=== PATIENT | male | born 1955 | race African-American/Black ===

== ENCOUNTER 2023-12-10 20:45 | Inpatient (IN) | payer MEDICARE, OTHER ==
[~2023-12-10] VITALS: Ht 172.7 cm; Wt 113.6 kg
[2023-12-10] MEDS: NALOXONE HCL 0.4MG/ML 1ML VIAL ONE (21:09)
[2023-12-10 21:14] LABS: DIFFERENTIAL COMMENT 1; HEMATOCRIT. 41.7 % (42.0-52.0); HEMOGLOBIN. 13.4 g/dL (14.0-18.0); MEAN CORPUSCULAR HEMOGLOBIN 26.9 pg (28.0-32.0); MEAN CORPUSCULAR HGB CONC 32.2 g/dL (31.0-37.0); MEAN CORPUSCULAR VOLUME 83.3 fL (80.0-94.0); MEAN PLATELET VOLUME 8.4 fl (7.4-10.4); PLATELET 317 x1000/uL (130-400); RED BLOOD CELL COUNT 5.01 mill/uL (4.7-6.1); RED CELL DISTRIBUTION WIDTH 17.6 % (11.6-14.6); WHITE BLOOD COUNT 6.5 x1000/uL (4.5-11.0)
[2023-12-10] MEDS: NALOXONE HCL 1MG/ML 2ML VIAL IV ONE ×2 (21:16)
[2023-12-10 21:20] VITALS: PULSE 109; RESP 16
[2023-12-10 21:24] LABS: PROTHROMBIN TIME 11.2 sec (9.6-11.0)
[2023-12-10 21:27] LABS: ALANINE AMINOTRANSFERASE 17 IU/L (10-49); ALBUMIN 4.7 g/dL (3.2-4.8); ASPARTATE AMINOTRANSFERASE 46 IU/L (<34); BILIRUBIN TOTAL 0.2 mg/dL (0.1-1.0); CALCIUM 9.7 mg/dL (8.7-10.4); CARBON DIOXIDE 21 mEq/L (21-32); CHLORIDE 96 mEq/L (98-107); GLUCOSE 128 mg/dL (70-105); POTASSIUM 5.4 mEq/L (3.5-5.1); PROTEIN TOTAL 8.3 g/dL (6.0-8.3); SODIUM 133 mEq/L (136-145); TROPONIN I HIGH SENSITIVITY 31 ng/L (3.0-53); UREA NITROGEN BLOOD 14 mg/dL (9-23)
[2023-12-10 21:29] LABS: ETHANOL BLOOD < 10 mg/dL (<10)
[2023-12-10 21:42] LABS: ANISOCYTOSIS 1+; PLATELET ESTIMATE NORMAL
[2023-12-10] MEDS: PROPOFOL 10MG/ML 100ML 100 ML IV STA (22:06)
[2023-12-10] MEDS: LEVETIRACETAM 500MG PREMIX 100 ML IV ONE (22:06)
[2023-12-10 22:22] LABS: CLARITY URINE CLEAR (CLEAR); COLOR URINE YELLOW (YELLOW); GLUCOSE URINE NEGATIVE (NEGATIVE); KETONES URINE NEGATIVE (NEGATIVE); LEUKOCYTE ESTERASE URINE NEGATIVE (NEGATIVE); NITRITE URINE NEGATIVE (NEGATIVE); OCCULT BLOOD URINE NEGATIVE (NEGATIVE); PROTEIN URINE 2+ (NEGATIVE); SPECIFIC GRAVITY URINE 1.035 (1.005-1.030); UROBILINOGEN URINE 0.2 E.U./dL (0.2-1.0)
[2023-12-10 22:34] LABS: *AMPHETAMINES SCREEN URINE NEGATIVE (NEGATIVE); *BARBITURATES SCREEN URINE NEGATIVE (NEGATIVE); *BENZODIAZEPINES SCREEN URINE PRESUMPTIVE POSITIVE (NEGATIVE); *COCAINE SCREEN URINE NEGATIVE (NEGATIVE); CANNABINOID URINE SCREEN NEGATIVE (NEGATIVE); ECSTASY MDMA SCREEN URINE NEGATIVE (NEGATIVE); METHADONE URINE SCREEN Neg (NEGATIVE); OPIATES URINE SCREEN NEGATIVE (NEGATIVE); PHENCYCLIDINE URINE SCREEN NEGATIVE (NEGATIVE)
[2023-12-10 22:42] LABS: BACTERIA URINE 1+; RBC URINE NONE SEEN /hpf (0-2); SQUAMOUS EPITHELIAL CELL URINE FEW /lpf (RARE/1+); WBC URINE 0-2 /hpf (0-2)
[2023-12-10] MEDS: SODIUM CHLORIDE 0.9% 1000ML BAG (SEPSIS BOLUS) IV ONE (22:56)
[2023-12-10] MEDS: PIPERACILLIN/TAZO 3.375G/50ML 50 ML IV ONE (22:56)
[2023-12-10 23:09] LABS: BG BASE EXCESS -1.3 mmol/L (-2.0-2.0); BG CARBOXYHEMOGLOBIN 0.5 % (0.5-1.5); BG DEOXYHEMOGLOBIN 11.4 % (0.0-5.0); BG FRACTION INSPIRED OXYGEN 60; BG HCO3 ACT 24.9 mmol/L (22.0-26.0); BG METHEMOGLOBIN 0.3 % (0.0-1.5); BG OXYGEN SATURATION 88.5 % (92.0-98.5); BG OXYHEMOGLOBIN 87.8 % (94.0-97.0); BG PCO2 47.4 mmHg (35.0-45.0); BG PH 7.338 (7.350-7.450); BG PO2 61.3 mmHg (75.0-100.0); BG SAMPLE SITE LEFT RADIAL; BG VENT MODE VENT - AC
[2023-12-10] MEDS ORDERED: LEVETIRACETAM 500MG PREMIX 100 ML IV ONE (23:30)
[2023-12-10] MEDS: VANCOMYCIN 1G PREMIX 200 ML IV ONE (23:43)
[2023-12-10 23:52] LABS: T4 FREE 1.24 ng/dL (0.89-1.76); THYROID STIMULATING HORMONE 4.66 uIU/mL (0.55-4.78)
[2023-12-11] VITALS (34 sets, daily range): BP systolic 114–198; BP diastolic 66–103; PULSE 53–79; RESP 12–20; TEMP 98–98.8
[2023-12-11 00:25] LABS: LACTIC ACID 4.1 mmol/L (0.4-2.0)
[2023-12-11] MEDS: AMLODIPINE 5MG TABLET PO SCH (00:45)
[2023-12-11] MEDS: ASPIRIN 81MG TABLET PO SCH (01:00)
[2023-12-11] MEDS ORDERED: DEXTROSE 50% WATER 50ML SYRINGE IV PRN (01:00)
[2023-12-11] MEDS: PROPOFOL 10MG/ML 100ML 100 ML IV NR (01:30)
[2023-12-11] MEDS: PANTOPRAZOLE SODIUM 40 MG/VIAL IV SCH (01:40)
[2023-12-11] MEDS: VANCOMYCIN 750MG PREMIX 150 ML IV NR (02:30)
[2023-12-11] MEDS: LEVETIRACETAM 500MG PREMIX 100 ML IV NR (03:27)
[2023-12-11] MEDS: SODIUM POLYSTYRENE SULFONATE 15 G/60 ML BOT PO NR (04:00)
[2023-12-11 04:03] LABS: EOSINOPHILS % 0.9 % (0.0-5.0); HEMATOCRIT. 38.8 % (42.0-52.0); HEMOGLOBIN. 12.7 g/dL (14.0-18.0); MEAN CORPUSCULAR HEMOGLOBIN 26.4 pg (28.0-32.0); MEAN CORPUSCULAR HGB CONC 32.7 g/dL (31.0-37.0); MEAN CORPUSCULAR VOLUME 80.7 fL (80.0-94.0); MONOCYTES % 13.3 % (2.0-8.0); NEUTROPHILS % 67.8 % (40.0-76.0); PLATELET 274 x1000/uL (130-400); RED BLOOD CELL COUNT 4.81 mill/uL (4.7-6.1); RED CELL DISTRIBUTION WIDTH 17.2 % (11.6-14.6); WHITE BLOOD COUNT 6.8 x1000/uL (4.5-11.0)
[2023-12-11 04:18] LABS: AMMONIA < 10 uMol/L (<32)
[2023-12-11 04:26] LABS: CREATINE KINASE 226 IU/L (46-171); TROPONIN I HIGH SENSITIVITY 39 ng/L (3.0-53)
[2023-12-11 04:30] LABS: ALANINE AMINOTRANSFERASE 10 IU/L (10-49); ALBUMIN 3.9 g/dL (3.2-4.8); ASPARTATE AMINOTRANSFERASE 19 IU/L (<34); BILIRUBIN TOTAL 0.2 mg/dL (0.1-1.0); CALCIUM 8.8 mg/dL (8.7-10.4); CARBON DIOXIDE 31 mEq/L (21-32); CHLORIDE 100 mEq/L (98-107); CHOLESTEROL 87 mg/dL (<200); CREATININE 0.9 mg/dL (0.6-1.3); GLUCOSE 105 mg/dL (70-105); HDL CHOLESTEROL 33 mg/dL (>55); LDL CHOLESTEROL 22 mg/dL (5-100); PROTEIN TOTAL 6.4 g/dL (6.0-8.3); SODIUM 137 mEq/L (136-145); T4 FREE 1.29 ng/dL (0.89-1.76); THYROID STIMULATING HORMONE 0.98 uIU/mL (0.55-4.78); TRIGLYCERIDE 266 mg/dL (0-150); UREA NITROGEN BLOOD 13 mg/dL (9-23)
[2023-12-11 04:44] LABS: POTASSIUM 2.9 mEq/L (3.5-5.1)
[2023-12-11] MEDS: PROPOFOL 10MG/ML 100ML 100 ML IV PRN (05:23)
[2023-12-11] MEDS: INSULIN LISPRO 100 UNITS/ML SUBCUT SCH (08:20)
[2023-12-11 08:56] LABS: BG BASE EXCESS 1.8 mmol/L (-2.0-2.0); BG CARBOXYHEMOGLOBIN 0.3 % (0.5-1.5); BG DEOXYHEMOGLOBIN 1.9 % (0.0-5.0); BG FRACTION INSPIRED OXYGEN 100; BG HCO3 ACT 28.4 mmol/L (22.0-26.0); BG METHEMOGLOBIN 0.5 % (0.0-1.5); BG OXYGEN SATURATION 98.1 % (92.0-98.5); BG OXYHEMOGLOBIN 97.3 % (94.0-97.0); BG PCO2 51.2 mmHg (35.0-45.0); BG PH 7.362 (7.350-7.450); BG PO2 131.7 mmHg (75.0-100.0); BG SAMPLE SITE RIGHT RADIAL; BG TOTAL HEMOGLOBIN 17.2 g/dL (12.0-18.0); BG TOTAL RESPIRATORY RATE 18 b/min; BG VENT MODE VENT - AC
[2023-12-11] MEDS: BLOOD SUGAR DIAGNOSTIC STRIP TEST SCH (09:13)
[2023-12-11] MEDS: LEVETIRACETAM 500MG PREMIX 100 ML IV SCH ×2 (09:16→21:00)
[2023-12-11] MEDS: ENOXAPARIN 30MG/0.3ML SYR SUBCUT SCH (09:16)
[2023-12-11] MEDS: PIPERACILLIN/TAZO 3.375G/50ML 50 ML IV SCH ×2 (10:03→13:14)
[2023-12-11] MEDS: TAMSULOSIN HCL 0.4MG SR CAPSULE PO SCH (10:14)
[2023-12-11] MEDS: LOSARTAN 50 MG TABLET PO SCH (10:14)
[2023-12-11] MEDS ORDERED: VANCOMYCIN 750MG PREMIX 150 ML IV SCH (12:00)
[2023-12-11] MEDS: ARIPIPRAZOLE 5MG TABLET PO SCH ×2 (12:30→21:00)
[2023-12-11] MEDS: VANCOMYCIN 750MG PREMIX 150 ML IV SCH (12:30)
[2023-12-11] MEDS: HYDRALAZINE HCL 100MG TABLET PO SCH (14:00)
[2023-12-11] MEDS: BUDESONIDE 0.5MG/2ML NEB HHN SCH (16:19)
[2023-12-11] MEDS: IPRATROPIUM/ALBUTEROL 0.5-3(2.5)MG/3ML NEB HHN SCH (16:19)
[2023-12-11] MEDS: MONTELUKAST SODIUM 10MG TABLET PO SCH (17:40)
[2023-12-11] MEDS: DEXT 5%/0.9% NACL 1,000 ML IV SCH (18:16)
[2023-12-11] MEDS: CLONIDINE 0.1MG TABLET PO PRN (18:32)
[2023-12-11 18:41] LABS: CREATINE KINASE 252 IU/L (46-171); TROPONIN I HIGH SENSITIVITY 29 ng/L (3.0-53)
[2023-12-11] MEDS: TRAZODONE HCL 50MG TABLET PO SCH (21:00)
[2023-12-11] MEDS: ATORVASTATIN CALCIUM 40MG TABLET PO SCH (21:00)
[2023-12-11] MEDS: KCL 20MEQ/100ML PREMIX 100 ML IV ONE (22:34)
[2023-12-11] MEDS: CARVEDILOL 3.125 MG TABLET PO SCH (23:00)
[2023-12-12] VITALS (58 sets, daily range): BP systolic 109–184; BP diastolic 50–97; PULSE 51–81; RESP 6–22; TEMP 97.8–98.5
[2023-12-12 05:38] LABS: HEMATOCRIT 38.3 % (42.0-52.0); HEMOGLOBIN 12.6 g/dL (14.0-18.0); MEAN CORPUSCULAR HEMOGLOBIN 26.9 pg (28.0-32.0); MEAN CORPUSCULAR VOLUME 81.4 fL (80.0-94.0); PLATELET 278 x1000/uL (130-400); RED CELL DISTRIBUTION WIDTH 17.2 % (11.6-14.6); WHITE BLOOD COUNT 7.8 x1000/uL (4.5-11.0)
[2023-12-12 05:57] LABS: CALCIUM 8.5 mg/dL (8.7-10.4); CARBON DIOXIDE 27 mEq/L (21-32); CHLORIDE 99 mEq/L (98-107); CREATININE 0.8 mg/dL (0.6-1.3); GLUCOSE 103 mg/dL (70-105); PHOSPHORUS 3.1 mg/dL (2.5-4.9); POTASSIUM 3.2 mEq/L (3.5-5.1); SODIUM 134 mEq/L (136-145); TRIGLYCERIDE 222 mg/dL (0-150); UREA NITROGEN BLOOD 6 mg/dL (9-23)
[2023-12-12] MEDS: ASPIRIN 81MG TABLET PO NR (06:27)
[2023-12-12 08:07] LABS: CARBON DIOXIDE 30 mEq/L (21-32); CHLORIDE 101 mEq/L (98-107); CREATININE 0.6 mg/dL (0.6-1.3); GLUCOSE 115 mg/dL (70-105); HEMATOCRIT 35.8 % (42.0-52.0); HEMOGLOBIN 11.6 g/dL (14.0-18.0); MEAN CORPUSCULAR HEMOGLOBIN 25.8 pg (28.0-32.0); MEAN CORPUSCULAR HGB CONC 32.5 g/dL (31.0-37.0); MEAN CORPUSCULAR VOLUME 79.4 fL (80.0-94.0); PLATELET 264 x1000/uL (130-400); RED BLOOD CELL COUNT 4.51 mill/uL (4.7-6.1); SODIUM 135 mEq/L (136-145); UREA NITROGEN BLOOD 7 mg/dL (9-23)
[2023-12-12 08:26] LABS: POTASSIUM 2.7 mEq/L (3.5-5.1)
[2023-12-12] MEDS: MAGNESIUM 2 G PREMIX 50 ML IV NR (08:50)
[2023-12-12] MEDS: AMLODIPINE 10MG TABLET PO SCH (08:51)
[2023-12-12] MEDS: LOSARTAN 25 MG TABLET PO SCH (08:51)
[2023-12-12] MEDS ORDERED: ASPIRIN 81MG TABLET PO SCH (09:00)
[2023-12-12 09:01] LABS: BG BASE EXCESS 3.6 mmol/L (-2.0-2.0); BG CARBOXYHEMOGLOBIN 0.4 % (0.5-1.5); BG DEOXYHEMOGLOBIN 8.3 % (0.0-5.0); BG FRACTION INSPIRED OXYGEN 80; BG METHEMOGLOBIN 0.2 % (0.0-1.5); BG OXYGEN SATURATION 91.6 % (92.0-98.5); BG OXYHEMOGLOBIN 91.1 % (94.0-97.0); BG PCO2 46.9 mmHg (35.0-45.0); BG PH 7.409 (7.350-7.450); BG PO2 65.5 mmHg (75.0-100.0); BG SAMPLE SITE RIGHT RADIAL; BG TOTAL HEMOGLOBIN 14.2 g/dL (12.0-18.0); BG VENT MODE VENT - AC
[2023-12-12] MEDS: POTASSIUM CHLORIDE 40 MEQ in DEXT 5% WATER 500 ML IV NR ×2 (09:12→13:54)
[2023-12-12] MEDS ORDERED: DEXT 5%/0.45% NACL KCL 40MEQ/L 1,000 ML IV ONE (10:30)
[2023-12-12] MEDS: PROPOFOL 10MG/ML 100ML 100 ML IV PRN (10:43)
[2023-12-12] MEDS: VANCOMYCIN 1G PREMIX 200 ML IV SCH (10:46)
[2023-12-12] MEDS: IOHEXOL-300 100 ML BOTTLE ONE (12:06)
[2023-12-12 14:48] LABS: CREATINE KINASE 186 IU/L (46-171)
[2023-12-12] MEDS ORDERED: POTASSIUM CHLORIDE 40 MEQ in DEXT 5% WATER 250 ML IV ONE (15:00)
[2023-12-12 17:32] LABS: IRON 14 ug/dL (65-175); TOTAL IRON BINDING CAPACITY 470 ug/dl (250-425)
[2023-12-12] MEDS: HYDRALAZINE 20MG/ML VIAL IV PRN (19:13)
[2023-12-12] MEDS: KCL 20MEQ/100ML X 2 FOR TOTAL KCL 40MEQ/200ML IV SCH (20:28)
[2023-12-12 23:54] LABS: CREATINE KINASE 171 IU/L (46-171)
[2023-12-13] VITALS (82 sets, daily range): BP systolic 92–173; BP diastolic 40–108; PULSE 62–95; RESP 0–29; TEMP 98.3–99.1
[2023-12-13] MEDS: BLOOD SUGAR DIAGNOSTIC STRIP TEST SCH
[2023-12-13] MEDS: INSULIN LISPRO 100 UNITS/ML SUBCUT SCH
[2023-12-13 00:45] LABS: POTASSIUM 3.6 mEq/L (3.5-5.1)
[2023-12-13 05:37] LABS: HEMATOCRIT 34.5 % (42.0-52.0); HEMOGLOBIN 11.4 g/dL (14.0-18.0); MEAN CORPUSCULAR HEMOGLOBIN 26.7 pg (28.0-32.0); MEAN CORPUSCULAR HGB CONC 33.2 g/dL (31.0-37.0); MEAN CORPUSCULAR VOLUME 80.4 fL (80.0-94.0); PLATELET 283 x1000/uL (130-400); RED BLOOD CELL COUNT 4.29 mill/uL (4.7-6.1); RED CELL DISTRIBUTION WIDTH 16.8 % (11.6-14.6); WHITE BLOOD COUNT 5.2 x1000/uL (4.5-11.0)
[2023-12-13 05:52] LABS: CALCIUM 8.3 mg/dL (8.7-10.4); CARBON DIOXIDE 27 mEq/L (21-32); CHLORIDE 102 mEq/L (98-107); CREATINE KINASE 148 IU/L (46-171); CREATININE 0.7 mg/dL (0.6-1.3); GLUCOSE 105 mg/dL (70-105); PHOSPHORUS 2.9 mg/dL (2.5-4.9); POTASSIUM 3.2 mEq/L (3.5-5.1); SODIUM 135 mEq/L (136-145); TRIGLYCERIDE 290 mg/dL (0-150); UREA NITROGEN BLOOD 6 mg/dL (9-23)
[2023-12-13] MEDS: PROPOFOL 10MG/ML 100ML 100 ML IV PRN (06:59)
[2023-12-13] MEDS: KCL 20MEQ/100ML PREMIX 100 ML IV SCH (07:40)
[2023-12-13] MEDS: LOSARTAN 50 MG TABLET PO SCH (08:18)
[2023-12-13] MEDS: LIDOCAINE HCL 1% 10 MG/ML 10ML VIAL ONE (13:09)
[2023-12-13] MEDS: AMLODIPINE 5MG TABLET PO SCH (16:13)
[2023-12-13 17:26] LABS: POTASSIUM URINE RANDOM 17.2 mEq/L
[2023-12-13 18:00] LABS: BG BASE EXCESS 2.3 mmol/L (-2.0-2.0); BG CARBOXYHEMOGLOBIN 0.1 % (0.5-1.5); BG DEOXYHEMOGLOBIN 6.1 % (0.0-5.0); BG FRACTION INSPIRED OXYGEN 80; BG HCO3 ACT 26.6 mmol/L (22.0-26.0); BG METHEMOGLOBIN 0.2 % (0.0-1.5); BG OXYGEN SATURATION 93.9 % (92.0-98.5); BG OXYHEMOGLOBIN 93.6 % (94.0-97.0); BG PCO2 40.5 mmHg (35.0-45.0); BG PH 7.436 (7.350-7.450); BG PO2 71.3 mmHg (75.0-100.0); BG SAMPLE SITE LEFT RADIAL; BG TOTAL HEMOGLOBIN 12.9 g/dL (12.0-18.0); BG VENT MODE VENT - AC
[2023-12-13] MEDS: METHYLPREDNISOLONE SOD SUCC 40MG/ML (ACT-O-VIAL) IV NR (18:38)
[2023-12-13] MEDS: ACETAMINOPHEN 325MG TABLET PO PRN (20:26)
[2023-12-13] MEDS: DOCUSATE SODIUM 100MG CAPSULE PO PRN (20:28)
[2023-12-13] MEDS: GUAIFENESIN 200MG/10ML SUGAR FREE UDC PO PRN (20:28)
[2023-12-13 22:46] LABS: HEMATOCRIT 38.4 % (42.0-52.0); HEMOGLOBIN 12.6 g/dL (14.0-18.0); MEAN CORPUSCULAR HEMOGLOBIN 26.3 pg (28.0-32.0); MEAN CORPUSCULAR HGB CONC 32.7 g/dL (31.0-37.0); MEAN CORPUSCULAR VOLUME 80.3 fL (80.0-94.0); PLATELET 271 x1000/uL (130-400); RED BLOOD CELL COUNT 4.78 mill/uL (4.7-6.1); RED CELL DISTRIBUTION WIDTH 17.1 % (11.6-14.6); WHITE BLOOD COUNT 5.9 x1000/uL (4.5-11.0)
[2023-12-13 22:54] LABS: POTASSIUM 3.7 mEq/L (3.5-5.1)
[2023-12-14] VITALS (61 sets, daily range): BP systolic 136–184; BP diastolic 69–99; PULSE 64–114; RESP 0–28; TEMP 98–99.5
[2023-12-14 05:58] LABS: CALCIUM 8.9 mg/dL (8.7-10.4); CARBON DIOXIDE 27 mEq/L (21-32); CHLORIDE 104 mEq/L (98-107); CREATININE 0.8 mg/dL (0.6-1.3); GLUCOSE 161 mg/dL (70-105); SODIUM 136 mEq/L (136-145); TRIGLYCERIDE 177 mg/dL (0-150); UREA NITROGEN BLOOD 6 mg/dL (9-23)
[2023-12-14] MEDS ORDERED: PROPOFOL 10MG/ML 100ML 100 ML IV PRN (08:15)
[2023-12-14] MEDS: LOSARTAN 100 MG TABLET PO SCH (08:29)
[2023-12-14 09:02] LABS: CLARITY URINE CLOUDY (CLEAR); COLOR URINE ORANGE (YELLOW); GLUCOSE URINE NEGATIVE (NEGATIVE); KETONES URINE NEGATIVE (NEGATIVE); LEUKOCYTE ESTERASE URINE 1+ (NEGATIVE); NITRITE URINE NEGATIVE (NEGATIVE); OCCULT BLOOD URINE 3+ (NEGATIVE); PROTEIN URINE 1+ (NEGATIVE); SPECIFIC GRAVITY URINE 1.018 (1.005-1.030); UROBILINOGEN URINE 0.2 E.U./dL (0.2-1.0)
[2023-12-14 09:29] LABS: BACTERIA URINE FEW; RBC URINE TNTC /hpf (0-2); SQUAMOUS EPITHELIAL CELL URINE NONE SEEN /lpf (RARE/1+); YEAST URINE NONE SEEN
[2023-12-14 10:21] LABS: BG BASE EXCESS 1.7 mmol/L (-2.0-2.0); BG CARBOXYHEMOGLOBIN 0.1 % (0.5-1.5); BG DEOXYHEMOGLOBIN 7.6 % (0.0-5.0); BG FRACTION INSPIRED OXYGEN 50; BG HCO3 ACT 26.6 mmol/L (22.0-26.0); BG METHEMOGLOBIN 0.2 % (0.0-1.5); BG OXYGEN SATURATION 92.4 % (92.0-98.5); BG OXYHEMOGLOBIN 92.1 % (94.0-97.0); BG PH 7.409 (7.350-7.450); BG PO2 68.5 mmHg (75.0-100.0); BG SAMPLE SITE RIGHT RADIAL; BG TOTAL HEMOGLOBIN 12.5 g/dL (12.0-18.0); BG VENT MODE VENT - AC
[2023-12-14 12:44] LABS: HEMATOCRIT 34.4 % (42.0-52.0); HEMOGLOBIN 11.4 g/dL (14.0-18.0); MEAN CORPUSCULAR HEMOGLOBIN 26.2 pg (28.0-32.0); MEAN CORPUSCULAR HGB CONC 33.1 g/dL (31.0-37.0); MEAN CORPUSCULAR VOLUME 79.3 fL (80.0-94.0); PLATELET 270 x1000/uL (130-400); RED BLOOD CELL COUNT 4.34 mill/uL (4.7-6.1); WHITE BLOOD COUNT 5.7 x1000/uL (4.5-11.0)
[2023-12-14 13:06] LABS: POTASSIUM 3.9 mEq/L (3.5-5.1)
[2023-12-14 20:32] LABS: POTASSIUM 3.8 mEq/L (3.5-5.1)
[2023-12-14] MEDS: MAGNESIUM/ALUMINUM HYDROXIDE/SIMETHICONE 30ML UDC PO PRN (22:26)
[2023-12-14] MEDS: SENNOSIDES/DOCUSATE SOD 8.6/50MG TABLET PO PRN (22:27)
[2023-12-14 23:26] LABS: POTASSIUM 4.2 mEq/L (3.5-5.1)
[2023-12-15] VITALS (76 sets, daily range): BP systolic 124–232; BP diastolic 67–156; PULSE 66–125; RESP 0–32; TEMP 98–99; O2SAT 98
[2023-12-15 05:26] LABS: HEMATOCRIT 33.8 % (42.0-52.0); HEMOGLOBIN 11.1 g/dL (14.0-18.0); MEAN CORPUSCULAR HGB CONC 32.8 g/dL (31.0-37.0); MEAN CORPUSCULAR VOLUME 79.1 fL (80.0-94.0); PLATELET 283 x1000/uL (130-400); RED BLOOD CELL COUNT 4.28 mill/uL (4.7-6.1); RED CELL DISTRIBUTION WIDTH 17.2 % (11.6-14.6); WHITE BLOOD COUNT 5.6 x1000/uL (4.5-11.0)
[2023-12-15 06:34] LABS: CALCIUM 8.7 mg/dL (8.7-10.4); CARBON DIOXIDE 27 mEq/L (21-32); CHLORIDE 105 mEq/L (98-107); CREATININE 0.7 mg/dL (0.6-1.3); GLUCOSE 94 mg/dL (70-105); PHOSPHORUS 3.5 mg/dL (2.5-4.9); POTASSIUM 3.7 mEq/L (3.5-5.1); SODIUM 140 mEq/L (136-145); TRIGLYCERIDE 209 mg/dL (0-150); UREA NITROGEN BLOOD 8 mg/dL (9-23)
[2023-12-15 07:37] LABS: BG CARBOXYHEMOGLOBIN 0.2 % (0.5-1.5); BG DEOXYHEMOGLOBIN 5.7 % (0.0-5.0); BG HCO3 ACT 27.8 mmol/L (22.0-26.0); BG METHEMOGLOBIN 0.3 % (0.0-1.5); BG OXYGEN SATURATION 94.3 % (92.0-98.5); BG OXYHEMOGLOBIN 93.8 % (94.0-97.0); BG PCO2 43.7 mmHg (35.0-45.0); BG PH 7.422 (7.350-7.450); BG PO2 74.3 mmHg (75.0-100.0); BG SAMPLE SITE RIGHT RADIAL; BG TOTAL HEMOGLOBIN 11.8 g/dL (12.0-18.0); BG VENT MODE VENT - AC
[2023-12-15] MEDS: PROPOFOL 10MG/ML 100ML 100 ML IV PRN (08:33)
[2023-12-15] MEDS: METHYLPREDNISOLONE SOD SUCC 40MG/ML (ACT-O-VIAL) IV SCH (13:03)
[2023-12-15] MEDS: ACETYLCYSTEINE 200MG/ML 20% VIAL 4ML INH SCH (13:07)
[2023-12-15 13:48] LABS: BG BASE EXCESS 1.8 mmol/L (-2.0-2.0); BG CARBOXYHEMOGLOBIN 0.3 % (0.5-1.5); BG FRACTION INSPIRED OXYGEN 100; BG HCO3 ACT 27.7 mmol/L (22.0-26.0); BG METHEMOGLOBIN 0.4 % (0.0-1.5); BG OXYHEMOGLOBIN 98.3 % (94.0-97.0); BG PCO2 48.3 mmHg (35.0-45.0); BG PH 7.376 (7.350-7.450); BG PO2 176.5 mmHg (75.0-100.0); BG SAMPLE SITE RIGHT RADIAL; BG TOTAL HEMOGLOBIN 13.4 g/dL (12.0-18.0); BG VENT MODE MASK - NRB
[2023-12-15] MEDS: BUDESONIDE 0.5MG/2ML NEB HHN SCH (16:01)
[2023-12-15] MEDS ORDERED: NICARDIPINE 50 MG in SODIUM CHLORIDE 0.9% 230 ML IV PRN (17:30)
[2023-12-15] MEDS: LABETALOL 5MG/ML SYR 20 MG/4 ML SYRINGE IV NR (18:33)
[2023-12-15] MEDS: METOPROLOL TARTRATE 50MG TABLET PO SCH (21:44)
[2023-12-16] VITALS (48 sets, daily range): BP systolic 134–171; BP diastolic 66–96; PULSE 66–98; RESP 11–22; TEMP 97.7–98.5; O2SAT 90–94
[2023-12-16 05:40] LABS: HEMATOCRIT 33.9 % (42.0-52.0); HEMOGLOBIN 11.1 g/dL (14.0-18.0); MEAN CORPUSCULAR HGB CONC 32.8 g/dL (31.0-37.0); MEAN CORPUSCULAR VOLUME 79.2 fL (80.0-94.0); PLATELET 272 x1000/uL (130-400); RED BLOOD CELL COUNT 4.28 mill/uL (4.7-6.1); WHITE BLOOD COUNT 7.4 x1000/uL (4.5-11.0)
[2023-12-16 05:57] LABS: CALCIUM 8.8 mg/dL (8.7-10.4); CARBON DIOXIDE 30 mEq/L (21-32); CHLORIDE 103 mEq/L (98-107); CREATININE 0.7 mg/dL (0.6-1.3); GLUCOSE 109 mg/dL (70-105); POTASSIUM 4.3 mEq/L (3.5-5.1); SODIUM 138 mEq/L (136-145); TRIGLYCERIDE 114 mg/dL (0-150); UREA NITROGEN BLOOD 10 mg/dL (9-23)
[2023-12-16 08:02] LABS: BG BASE EXCESS 4.3 mmol/L (-2.0-2.0); BG DEOXYHEMOGLOBIN 5.1 % (0.0-5.0); BG HCO3 ACT 31.3 mmol/L (22.0-26.0); BG METHEMOGLOBIN 0.3 % (0.0-1.5); BG OXYGEN SATURATION 94.9 % (92.0-98.5); BG OXYHEMOGLOBIN 94.6 % (94.0-97.0); BG PCO2 59.3 mmHg (35.0-45.0); BG PH 7.341 (7.350-7.450); BG PO2 82.4 mmHg (75.0-100.0); BG SAMPLE SITE RIGHT RADIAL; BG TOTAL HEMOGLOBIN 11.6 g/dL (12.0-18.0); BG VENT MODE MASK - NRB
[2023-12-16] MEDS: ONDANSETRON HCL 4MG/2ML INJ IV PRN (09:29)
[2023-12-16] MEDS: GLYCOPYRROLATE 0.2 MG/ML 2ML VIAL IV SCH (11:00)
[2023-12-16] MEDS: METOPROLOL TARTRATE 50MG TABLET PO SCH (15:47)
[2023-12-16] MEDS: IPRATROPIUM/ALBUTEROL 0.5-3(2.5)MG/3ML NEB HHN PRN (20:46)
[2023-12-17] VITALS (21 sets, daily range): BP systolic 134–174; BP diastolic 67–118; PULSE 63–79; RESP 15–32; TEMP 97.7–98.3; O2SAT 99
[2023-12-17 05:16] LABS: HEMATOCRIT 34.3 % (42.0-52.0); HEMOGLOBIN 11.4 g/dL (14.0-18.0); MEAN CORPUSCULAR HEMOGLOBIN 26.6 pg (28.0-32.0); MEAN CORPUSCULAR HGB CONC 33.2 g/dL (31.0-37.0); PLATELET 321 x1000/uL (130-400); RED BLOOD CELL COUNT 4.28 mill/uL (4.7-6.1); RED CELL DISTRIBUTION WIDTH 16.9 % (11.6-14.6); WHITE BLOOD COUNT 7.7 x1000/uL (4.5-11.0)
[2023-12-17 05:35] LABS: CARBON DIOXIDE 29 mEq/L (21-32); CHLORIDE 101 mEq/L (98-107); CREATININE 0.7 mg/dL (0.6-1.3); GLUCOSE 123 mg/dL (70-105); POTASSIUM 4.1 mEq/L (3.5-5.1); SODIUM 135 mEq/L (136-145); UREA NITROGEN BLOOD 17 mg/dL (9-23)
[2023-12-17] MEDS: IOHEXOL-350 100 ML BOTTLE ONE (07:55)
[2023-12-17 08:28] LABS: BG BASE EXCESS 3.9 mmol/L (-2.0-2.0); BG CARBOXYHEMOGLOBIN 0.3 % (0.5-1.5); BG DEOXYHEMOGLOBIN 4.3 % (0.0-5.0); BG FRACTION INSPIRED OXYGEN 80; BG HCO3 ACT 29.4 mmol/L (22.0-26.0); BG METHEMOGLOBIN 0.2 % (0.0-1.5); BG OXYGEN SATURATION 95.7 % (92.0-98.5); BG OXYHEMOGLOBIN 95.2 % (94.0-97.0); BG PCO2 47.6 mmHg (35.0-45.0); BG PH 7.408 (7.350-7.450); BG SAMPLE SITE LEFT RADIAL; BG VENT MODE HIGH FLOW
[2023-12-17] MEDS: NIFEDIPINE XL 90MG TAB PO SCH (10:04)
[2023-12-18] VITALS (16 sets, daily range): BP systolic 128–182; BP diastolic 64–154; PULSE 63–95; RESP 15–24; TEMP 97.5–97.8; O2SAT 93–96
[2023-12-18 06:40] LABS: HEMATOCRIT 36.5 % (42.0-52.0); HEMOGLOBIN 12.1 g/dL (14.0-18.0); MEAN CORPUSCULAR HEMOGLOBIN 26.4 pg (28.0-32.0); MEAN CORPUSCULAR HGB CONC 33.2 g/dL (31.0-37.0); MEAN CORPUSCULAR VOLUME 79.5 fL (80.0-94.0); PLATELET 353 x1000/uL (130-400); RED BLOOD CELL COUNT 4.59 mill/uL (4.7-6.1); WHITE BLOOD COUNT 7.6 x1000/uL (4.5-11.0)
[2023-12-18 07:10] LABS: CARBON DIOXIDE 29 mEq/L (21-32); CHLORIDE 99 mEq/L (98-107); CREATININE 0.7 mg/dL (0.6-1.3); GLUCOSE 126 mg/dL (70-105); POTASSIUM 3.9 mEq/L (3.5-5.1); SODIUM 134 mEq/L (136-145); UREA NITROGEN BLOOD 19 mg/dL (9-23)
[2023-12-18 09:07] LABS: BG BASE EXCESS 3.3 mmol/L (-2.0-2.0); BG CARBOXYHEMOGLOBIN 0.3 % (0.5-1.5); BG DEOXYHEMOGLOBIN 3.9 % (0.0-5.0); BG FRACTION INSPIRED OXYGEN 70; BG HCO3 ACT 28.4 mmol/L (22.0-26.0); BG METHEMOGLOBIN 0.1 % (0.0-1.5); BG OXYGEN SATURATION 96.1 % (92.0-98.5); BG OXYHEMOGLOBIN 95.7 % (94.0-97.0); BG PCO2 44.8 mmHg (35.0-45.0); BG SAMPLE SITE LEFT RADIAL; BG VENT MODE HIGH FLOW
[2023-12-18] MEDS: NICOTINE 7MG PATCH TD SCH (18:09)
[2023-12-18] MEDS: METHYLPREDNISOLONE SOD SUCC 40MG/ML (ACT-O-VIAL) IV SCH (18:09)
[2023-12-18] MEDS: ENOXAPARIN 40MG/0.4ML SYR SUBCUT SCH (21:04)
[2023-12-18] MEDS: BUDESONIDE 0.5MG/2ML NEB HHN SCH (21:25)
[2023-12-19] VITALS (16 sets, daily range): BP systolic 151–198; BP diastolic 78–98; PULSE 56–91; RESP 13–24; TEMP 97.7–97.8; O2SAT 94–99
[2023-12-19 06:07] LABS: HEMOGLOBIN 12.8 g/dL (14.0-18.0); MEAN CORPUSCULAR HEMOGLOBIN 26.6 pg (28.0-32.0); MEAN CORPUSCULAR HGB CONC 32.8 g/dL (31.0-37.0); PLATELET 424 x1000/uL (130-400); RED BLOOD CELL COUNT 4.82 mill/uL (4.7-6.1); WHITE BLOOD COUNT 8.5 x1000/uL (4.5-11.0)
[2023-12-19 06:57] LABS: CALCIUM 9.4 mg/dL (8.7-10.4); CARBON DIOXIDE 33 mEq/L (21-32); CHLORIDE 99 mEq/L (98-107); CREATININE 0.8 mg/dL (0.6-1.3); GLUCOSE 114 mg/dL (70-105); POTASSIUM 4.1 mEq/L (3.5-5.1); SODIUM 136 mEq/L (136-145); UREA NITROGEN BLOOD 20 mg/dL (9-23)
[2023-12-19] MEDS: NICOTINE 21MG PATCH TD SCH (13:00)
[2023-12-19] MEDS: LEVETIRACETAM 500MG TABLET PO SCH (22:19)
[2023-12-20] VITALS (17 sets, daily range): BP systolic 153–175; BP diastolic 69–97; PULSE 57–80; RESP 12–28; TEMP 97.7–98.6; O2SAT 95–97
[2023-12-20 08:18] LABS: HEMATOCRIT 37.5 % (42.0-52.0); HEMOGLOBIN 12.6 g/dL (14.0-18.0); MEAN CORPUSCULAR HEMOGLOBIN 26.5 pg (28.0-32.0); MEAN CORPUSCULAR HGB CONC 33.7 g/dL (31.0-37.0); MEAN CORPUSCULAR VOLUME 78.6 fL (80.0-94.0); PLATELET 401 x1000/uL (130-400); RED BLOOD CELL COUNT 4.77 mill/uL (4.7-6.1); RED CELL DISTRIBUTION WIDTH 16.7 % (11.6-14.6); WHITE BLOOD COUNT 8.6 x1000/uL (4.5-11.0)
[2023-12-20] MEDS: PANTOPRAZOLE 40MG DR TABLET PO SCH (08:21)
[2023-12-20 09:02] LABS: CALCIUM 9.1 mg/dL (8.7-10.4); CARBON DIOXIDE 31 mEq/L (21-32); CHLORIDE 98 mEq/L (98-107); CREATININE 0.8 mg/dL (0.6-1.3); GLUCOSE 108 mg/dL (70-105); SODIUM 135 mEq/L (136-145); UREA NITROGEN BLOOD 19 mg/dL (9-23)
[2023-12-20] MEDS: CLONIDINE 0.1MG TABLET PO SCH (13:40)
[2023-12-20] MEDS: ENOXAPARIN 30MG/0.3ML SYR SUBCUT SCH (21:44)
[2023-12-21] VITALS (13 sets, daily range): BP systolic 98–183; BP diastolic 49–98; PULSE 56–75; RESP 13–21; TEMP 96.8–97.3
[2023-12-21 07:30] LABS: HEMATOCRIT 35.1 % (42.0-52.0); HEMOGLOBIN 11.6 g/dL (14.0-18.0); MEAN CORPUSCULAR HEMOGLOBIN 26.2 pg (28.0-32.0); MEAN CORPUSCULAR HGB CONC 33.2 g/dL (31.0-37.0); PLATELET 387 x1000/uL (130-400); RED BLOOD CELL COUNT 4.44 mill/uL (4.7-6.1); RED CELL DISTRIBUTION WIDTH 16.6 % (11.6-14.6); WHITE BLOOD COUNT 9.1 x1000/uL (4.5-11.0)
[2023-12-21 07:54] LABS: CALCIUM 8.6 mg/dL (8.7-10.4); CARBON DIOXIDE 31 mEq/L (21-32); CHLORIDE 98 mEq/L (98-107); CREATININE 0.6 mg/dL (0.6-1.3); GLUCOSE 114 mg/dL (70-105); POTASSIUM 3.8 mEq/L (3.5-5.1); SODIUM 134 mEq/L (136-145); UREA NITROGEN BLOOD 15 mg/dL (9-23)
[2023-12-22] VITALS (10 sets, daily range): BP systolic 131–165; BP diastolic 65–96; PULSE 53–70; RESP 12–24; TEMP 97.2–97.6; O2SAT 96
[2023-12-22] MEDS ORDERED: TRAZ-251 PO (09:52)
[2023-12-22] MEDS ORDERED: METO-539 PO (09:52)
[2023-12-22] MEDS ORDERED: HYDR100T26 PO (09:52)
[2023-12-22] MEDS ORDERED: MONT-46 PO (09:52)
[2023-12-22] MEDS ORDERED: LOSA100T33 PO (09:52)
[2023-12-22] MEDS ORDERED: ABIL5 PO ×2 (09:52)
[2023-12-22] MEDS ORDERED: CLON0.1T PO (09:52)
[2023-12-22] MEDS ORDERED: NIFE90TA60 PO (09:52)
[2023-12-22] MEDS ORDERED: KEPP500 PO (09:52)
[2023-12-22] MEDS ORDERED: TAMS-11 PO (09:52)
[2023-12-22] MEDS ORDERED: LIP40 PO (09:52)
== END 2023-12-22 18:00 | disposition home or self-care (01) | DRG 130 ==
LOC: ER 20:45 → MICUSO 23:23 → 5EST 12-17 18:10
PROVIDERS: ADMIT Hospitalist; ATTEND Hospitalist
PROC: 5A1955Z Respiratory Ventilation, Greater than 96 Consecutive Hours (ICD-10-PCS; principal; 2023-12-10)
PROC: 0BH17EZ Insertion of Endotracheal Airway into Trachea, Via Natural or Artificial Opening (ICD-10-PCS; 2023-12-10)
PROC: 4A10X4Z Monitoring of Central Nervous Electrical Activity, External Approach (ICD-10-PCS; 2023-12-13)
PROC: 02HV33Z Insertion of Infusion Device into Superior Vena Cava, Percutaneous Approach (ICD-10-PCS; 2023-12-13)
PROC: B548ZZA Ultrasonography of Superior Vena Cava, Guidance (ICD-10-PCS; 2023-12-13)
PROC: 5A0955A Assistance with Respiratory Ventilation, Greater than 96 Consecutive Hours, High Flow/Velocity Cannula (ICD-10-PCS; 2023-12-16)
DX: J96.01 Acute respiratory failure with hypoxia (principal); G92.8 Other toxic encephalopathy; E87.1 Hypo-osmolality and hyponatremia; D63.8 Anemia in other chronic diseases classified elsewhere; H05.20 Unspecified exophthalmos; C61 Malignant neoplasm of prostate; I11.9 Hypertensive heart disease without heart failure; J43.9 Emphysema, unspecified; G40.909 Epilepsy, unspecified, not intractable, without status epilepticus; D50.9 Iron deficiency anemia, unspecified; E78.5 Hyperlipidemia, unspecified; Z99.81 Dependence on supplemental oxygen; Z68.38 Body mass index [BMI] 38.0-38.9, adult; E87.5 Hyperkalemia; F20.9 Schizophrenia, unspecified; E66.01 Morbid (severe) obesity due to excess calories; E87.6 Hypokalemia; F17.203 Nicotine dependence unspecified, with withdrawal; E83.42 Hypomagnesemia; Z78.1 Physical restraint status; Z79.4 Long term (current) use of insulin; Z79.82 Long term (current) use of aspirin; Z79.899 Other long term (current) drug therapy; Z85.118 Personal history of other malignant neoplasm of bronchus and lung; Z85.46 Personal history of malignant neoplasm of prostate
CPT/HCPCS: 36415; 36573; 36600; 70496; 70498; 71045; 71260; 76700; 76770; 80048; 80053; 80061; 80202; 80305; 80320; 81003; 82140; 82375; 82550; 82728; 82805; 82962; 83036; 83540; 83550; 83605; 83735; 83880; 83930; 83935; 84100; 84132; 84133; 84145; 84153; 84439; 84443; 84478; 84481; 84484; 85025; 85027; 87070; 93306; 93970; 94002; 94003; 94640; 95816; 97116; 97162; 97166; 97530; 97535; 99291; A6261; C1725; C9113; J0360; J1650; J1815; J1953; J2310; J2405; J2543; J2704; J2920; J3370; J3475; J3480; J3490; J7030; J7042; J7060; J7608; J7626; Q9967; G0480